=== PATIENT | female | born 1960 | race African-American/Black ===

== ENCOUNTER 2018-07-27 21:29 | Emergency (ER) | payer OTHER ==
[~2018-07-27] VITALS: Ht 157.5 cm; Wt 81.6 kg
[2018-07-27] MEDS ORDERED: HYDROcodone/APAP 5/325MG 1 TAB TABLET PO ONE (22:00)
[2018-07-27] MEDS ORDERED: predniSONE 10 MG TABLET PO ONE (22:00)
[2018-07-27] MEDS ORDERED: CYCLOBENZAPRINE 10 MG TABLET. PO ONE (22:00)
--- NOTE | 2018-07-27 22:05 | PHYS DOC ---
Past History Past Medical History: Asthma, Hypertension Past Surgical History: Hysterectomy, Tonsillectomy Alcohol Use: None Drug Use: None Adult General Chief Complaint Chief Complaint: SHOULDER INJURY [facility] HPI 58-year-old female presents with left shoulder and neck pain. The patient states that she has been told she has degenerative disc disease. She previously was on Flexeril which allowed her to sleep she is not sure made the pain much better, but it was better than it is now. She says that today the patient's muscle pain has increased and it feels very "tight and balled up". The patient is supposed to get into pain management and get a referral for physical therapy. She is in a [facility] and those referrals take time. She denies recent injury or trauma. She denies fever or chills. Review of Systems Review of Systems Constitutional: Denies fever or chills [] Eyes: Denies change in visual acuity, redness, or eye pain [] HENT: Denies nasal congestion or sore throat. [] Respiratory: Denies cough or shortness of breath [] Cardiovascular: No additional information not addressed in HPI [] GI: Denies abdominal pain, nausea, vomiting, bloody stools or diarrhea [] : Denies dysuria or hematuria [] Musculoskeletal: Left sided neck and upper back pain[] Integument: Denies rash or skin lesions [] Neurologic: Denies headache, focal weakness or sensory changes [] Endocrine: Denies polyuria or polydipsia [] All other systems were reviewed and found to be within normal limits, except as documented in this note. Allergies Allergies Allergies Coded Allergies Type Severity Reaction Last Updated Verified Penicillins Allergy Unknown 07/27/18 Yes Physical Exam Physical Exam Constitutional: Well developed, well nourished, no acute distress, non-toxic appearance. [] HENT: Normocephalic, atraumatic, bilateral external ears normal, oropharynx moist, no oral exudates, nose normal. [] Eyes: PERRLA, EOMI, conjunctiva normal, no discharge. [] Neck: Decreased range of motion, supple, no stridor. Pain with palpation over the left upper trapezius distribution. Muscle spasm in this area.[] Cardiovascular:Heart rate regular rhythm, no murmur [] Lungs & Thorax: Bilateral breath sounds clear to auscultation [] Abdomen: Bowel sounds normal, soft, no tenderness, no masses, no pulsatile masses. [] Skin: Warm, dry, no erythema, no rash. [] Back: No tenderness, no CVA tenderness. [] Extremities: No tenderness, no cyanosis, no clubbing, ROM intact, no edema. [] Neurologic: Alert and oriented X 3, normal motor function, normal sensory function, no focal deficits noted. [] Psychologic: Affect normal, judgement normal, mood normal. [] Current Patient Data Vital Signs Vital Signs Date Time Temp Pulse Resp B/P (MAP) Pulse Ox O2 Delivery O2 Flow Rate FiO2 07/27/18 21:35 98.4 90 20 98 Room Air EKG EKG [] Radiology/Procedures Radiology/Procedures [] Course & Med Decision Making Course & Med Decision Making Pertinent Labs and Imaging studies reviewed. (See chart for details) I believe the patient is having muscle spasms likely triggered by her degenerative disc disease. I will treat her with one [place] 5/325 in the ED, 2 mg of Flexeril, and 50 mg of prednisone. I will discharge her with a prescription for 3 more days of prednisone and a prescription for Flexeril. Vitals that she continue to get those referrals and go to physical therapy. Patient states verbal understanding. She is stable for discharge at this time. [] Dragon Disclaimer Dragon Disclaimer This electronic medical record was generated, in whole or in part, using a voice recognition dictation system. Departure Departure: Impression: Primary Impression: Cervical muscle pain Additional Impression: Cervical paraspinal muscle spasm Disposition: 01 HOME, SELF-CARE Condition: STABLE Referrals: NON,STAFF (PCP) Patient Instructions: Cervical Strain and Sprain with [facility] Scripts Prednisone (PREDNISONE) 10 Mg Tablet 50 MG PO DAILY for cervical pain for 3 Days, #15 TAB Prov: ZENY BROWN DO 07/27/18 Cyclobenzaprine Hcl (CYCLOBENZAPRINE HCL) 10 Mg Tablet 1 TAB PO TID PRN for MUSCLE SPASMS, #30 TAB Prov: ZENY BROWN DO 07/27/18 Problem Qualifiers ZENY BROWN DO Jul 27, 2018 22:05
[2018-07-27] MEDS ORDERED: PRED-220 PO (22:07)
[2018-07-27] MEDS ORDERED: CYCL-331 PO (22:07)
[2018-07-27 22:15] VITALS: BP 112/58
[2018-07-27] MEDS ORDERED: predniSONE 10 MG TABLET ONE (22:35)
[2018-07-27] MEDS ORDERED: HYDROcodone/APAP 5/325MG 1 TAB TABLET ONE (22:35)
[2018-07-27] MEDS ORDERED: CYCLOBENZAPRINE 10 MG TABLET. ONE (22:35)
== END 2018-07-27 22:45 | disposition home or self-care (01) ==
LOC: ER 21:29
DX: M62.838 Other muscle spasm (principal); M54.2 Cervicalgia; J45.909 Unspecified asthma, uncomplicated; I10 Essential (primary) hypertension; Z88.0 Allergy status to penicillin
CPT/HCPCS: 99284; J7512

== ENCOUNTER 2018-08-22 00:30 | Emergency (ER) | payer OTHER ==
[~2018-08-22] VITALS: Ht 154.9 cm; Wt 72.6 kg
[~2018-08-22 00:30] MED LIST: CYCL-331 PO; PRED-220 PO
[2018-08-22 00:37] VITALS: BP 125/82
--- NOTE | 2018-08-22 00:41 | ED.ADGEN ---
Past History Past Medical History: Asthma, Bronchitis, Hypertension Past Surgical History: Hysterectomy, Tonsillectomy Alcohol Use: None Drug Use: None Adult General Chief Complaint Chief Complaint ".. I ve been coughing so much.. I can't sleep... I had this once before.. a upper respiratory infection.. I do have asthma.. I ve been using my inhaler.. 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 No recent travel or specific ill contacts. Patient's cough has been productive with discolored sputum. No history immunosuppression. Patient states she's no longer smokes. Patient does have a history of asthma. No history of hospitalizations for her asthma. No history of intubations for asthma. Patient currently working at [employer]. Review of Systems Review of Systems Constitutional: Denies fever or chills [] Eyes: Denies change in visual acuity,, or eye pain [] Conjunctivitis. HENT: Hx. nasal congestion or sore throat [] Respiratory: Hx of productive cough and wheezing. Cardiovascular: No additional information not addressed in HPI [] GI: Denies abdominal pain, nausea, vomiting, bloody stools or diarrhea [] : Denies dysuria or hematuria [] Musculoskeletal: Denies back pain or joint pain [] Integument: Denies rash or skin lesions [] Neurologic: Denies headache, focal weakness or sensory changes [] Endocrine: Denies polyuria or polydipsia [] All other systems were reviewed and found to be within normal limits, except as documented in this note. Family History Family History Non-contributory Current Medications Current Medications Current Medications Medications (Trade) Dose Ordered Sig/Carmita Start Time Stop Time Status Last Admin Dose Admin Albuterol Sulfate (Ventolin Hfa Inhaler) 2 puff 1X ONCE 08/22/18 01:00 08/22/18 01:04 DC 08/22/18 01:14 2 PUFF Azithromycin (Zithromax) 500 mg 1X ONCE 08/22/18 01:00 08/22/18 01:04 DC 08/22/18 01:13 500 MG Diphenhydramine HCl (Benadryl) 25 mg 1X ONCE 08/22/18 01:00 08/22/18 01:04 DC 08/22/18 01:11 25 MG Erythromycin (Romycin) 0.25 inch 1X ONCE 08/22/18 01:00 08/22/18 01:04 DC 08/22/18 01:13 0.25 INCH Prednisone (Prednisone) 50 mg 1X ONCE 08/22/18 01:00 08/22/18 01:04 DC 08/22/18 01:12 50 MG Allergies Allergies Allergies Coded Allergies Type Severity Reaction Last Updated Verified Penicillins Allergy Unknown 07/27/18 Yes Physical Exam Physical Exam Constitutional: moderate acute distress, non-toxic appearance. [] HENT: Normocephalic, atraumatic, bilateral external ears normal, oropharynx moist, mild injection throat, no oral exudates, nose swollen turbinates. Eyes: PERRLA, EOMI, conjunctiva injected, with discharge. [] Neck: Normal range of motion, no tenderness, supple, no stridor. [] Cardiovascular:Heart rate regular rhythm, no murmur [] Lungs & Thorax: Bilateral breath sounds equal with scattered wheezes on auscultation [] Abdomen: Bowel sounds normal, soft, no tenderness, no masses, no pulsatile masses. [] Skin: Warm, dry, no erythema, no rash. [] Back: No tenderness, no CVA tenderness. [] Extremities: No tenderness, no cyanosis, no clubbing, ROM intact, no edema. [] Neurologic: Alert and oriented X 3, normal motor function, normal sensory function, no focal deficits noted. [] Psychologic: Affect anxious, judgement normal, mood normal. [] Current Patient Data Vital Signs Vital Signs Date Time Temp Pulse Resp B/P (MAP) Pulse Ox O2 Delivery O2 Flow Rate FiO2 08/22/18 00:37 98.3 77 18 98 Room Air EKG EKG [] Radiology/Procedures Radiology/Procedures [] Course & Med Decision Making Course & Med Decision Making Pertinent Labs and Imaging studies reviewed. (See chart for details) Pt to use MDI two puffs four times a day with spacer. Take Prednisone 50 mg day. Take Zithromax 250 mg day. Follow up with primary. Return if any concerns. [] Final Impression Final Impression 1. Upper Respiratory Infection 2. Bronchitis/ Asthma 3. Conjunctivitis[] Dragon Disclaimer Dragon Disclaimer This electronic medical record was generated, in whole or in part, using a voice recognition dictation system. 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 Discharge Information Condition at Discharge: Improved, Stable Disposition/Orders: D/C to Home Dischare Medications Current Medications Albuterol Sulfate (Ventolin Hfa Inhaler) 2 puff 1X ONCE INH Last administered on 08/22/18at 01:14; Admin Dose 2 PUFF; Start 08/22/18 at 01:00; Stop 08/22/18 at 01:04; Status DC Diphenhydramine HCl (Benadryl) 25 mg 1X ONCE PO Last administered on 08/22/18at 01:11; Admin Dose 25 MG; Start 08/22/18 at 01:00; Stop 08/22/18 at 01:04; Status DC Prednisone (Prednisone) 50 mg 1X ONCE PO Last administered on 08/22/18at 01:12; Admin Dose 50 MG; Start 08/22/18 at 01:00; Stop 08/22/18 at 01:04; Status DC Azithromycin (Zithromax) 500 mg 1X ONCE PO Last administered on 08/22/18at 01:13; Admin Dose 500 MG; Start 08/22/18 at 01:00; Stop 08/22/18 at 01:04; Status DC Erythromycin (Romycin) 0.25 inch 1X ONCE OU Last administered on 08/22/18at 01:13; Admin Dose 0.25 INCH; Start 08/22/18 at 01:00; Stop 08/22/18 at 01:04; Status DC Active Scripts Active Zithromax (Azithromycin) 250 Mg Tablet 250 Mg PO DAILY 5 Days Prednisone 50 Mg Tablet 50 Mg PO DAILY 5 Days Prednisone 10 Mg Tablet 50 Mg PO DAILY 3 Days Cyclobenzaprine Hcl 10 Mg Tablet 1 Tab PO TID PRN Dragon Disclaimer This chart was dictated in whole or in part using Voice Recognition software in a busy, high-work load, and often noisy Emergency Department environment. It may contain unintended and wholly unrecognized errors or omissions. CHESTER CHRISTIANSEN MD Aug 22, 2018 00:41
[2018-08-22] MEDS ORDERED: PRED50TA PO (00:56)
[2018-08-22] MEDS ORDERED: AZIT250T PO (00:56)
[2018-08-22] MEDS ORDERED: ERYTHROMYCIN 0.5% OPHTH OINTMENT 1GM TUBE. OU ONE (01:00)
[2018-08-22] MEDS ORDERED: ALBUTEROL SULFATE 8GM INHALER. INH ONE (01:00)
[2018-08-22] MEDS ORDERED: predniSONE 10 MG TABLET PO ONE (01:00)
[2018-08-22] MEDS ORDERED: AZITHROMYCIN 250 MG TABLET. PO ONE (01:00)
[2018-08-22] MEDS ORDERED: diphenhydrAMINE HCL 25 MG CAPSULE PO ONE (01:00)
== END 2018-08-22 01:52 | disposition home or self-care (01) ==
LOC: ER 00:30
DX: J06.9 Acute upper respiratory infection, unspecified (principal); H10.9 Unspecified conjunctivitis; J45.909 Unspecified asthma, uncomplicated; I10 Essential (primary) hypertension; Z88.0 Allergy status to penicillin
CPT/HCPCS: 94640; 99284; J0456; J7512; J7613; Q0163